=== PATIENT | male | born 1980 | race Two or more races ===

== ENCOUNTER 2024-12-22 17:34 | Emergency (ER) | payer MEDICAID, SELFPAY ==
[2024-12-22 17:46] VITALS: BP 115/79; PULSE 92; RESP 18; TEMP 37.2; O2SAT 97; BMI 33.1
--- NOTE | 2024-12-22 18:08 | XR_ITS ---
Examination: PA chest single view TECHNIQUE: Upright AP chest single view Date and time: December 22, 2024 1810 hours INDICATIONS: Coughing fever beginning 3 days ago. FINDINGS: Normal heart size No lobar pneumonia or pulmonary edema Reduced inspiratory effort IMPRESSION: Poor inspiratory effort chest x-ray
--- NOTE | 2024-12-22 18:10 | EDNOTE_ITS ---
ED Headache RME/HPI General Chief Complaint: Headache Stated Complaint: Diarrhea, ATKINSON and body aches X 2 days Time Seen by Provider: 12/22/24 17:55 Arrival date/time: 12/22/24 17:34 RME / HPI RME / HPI Narrative: 44-year-old male patient came in for evaluation regarding fever. Patient's been having fever, headache, diarrhea, body aches, bone pain, sore throat, for the last 2 days. Also complained of nonproductive cough. Patient denies any abdominal pain. Denies any ill contacts. No medications taken prior to arrival. Denies any head trauma or fall. Related Data Previous Rx's ?Medication ?Instructions ?Recorded acetaminophen 500 mg tablet 500 mg PO Q6HR PRN PAIN #3 0 tabs 01/22/15 (Tylenol Extra Strength) ibuprofen 800 mg tablet 800 mg PO Q8H PRN pain #30 t abs 12/22/24 Allergies Allergy/AdvReac Type Severity Reaction Status Date / Time No Known Allergies Allergy Unverified 12/22/24 18:10 Review of Systems Review of Systems Narrative Review of Systems: Review of system reviewed and within normal limits except mentioned in HPI ED Exam Narrative Physical exam: VITAL SIGNS: Reviewed. GENERAL APPEARANCE: Alert and interactive, follows commands, no acute distress, HEAD AND FACE: Non-traumatic. ENT: PERRL, pink conjunctivitis, eyelid no trauma, Mucous membrane moist. NECK: Supple, nontender, no nuchal rigidity. CHEST: No tenderness, no crepitus, no paradoxical movement, no retractions. LUNGS: Clear, well ventilated, symmetric, no rales, no wheezing, no ronchi, no stridor, good breath sounds bilaterally. HEART: Regular rate, regular rhythm, no murmur, no gallops. ABDOMEN: Soft, positive bowel sounds, nondistended, no guarding, nontender, no rebound, no masses, RECTAL: Deferred. GENITAL: Deferred. NEUROLOGICAL: Gross motor function intact sensory function intact, Appropriate for age. MUSCULOSKELETAL: low back nontender, full range of motion. EXTREMITIES: Nontender, full range of motion. SKIN: Color pink, dry, no rash, no lacerations, no abrasions, no contusions. LYMPHATICS: Deferred. Course Quality Measures none Orders Category Date Time Status Bedside COVID-19 Antigen Test NOW Care 12/22/24 18:08 Active XR chest 1V Stat Exams 12/22/24 18:08 Completed CBC [CBC] Stat Lab 12/22/24 18:36 Completed CMP [Comprehensive Metabolic Panel] Stat Lab 12/22/24 18:36 Completed Strep A Rapid Stat Lab 12/22/24 18:44 Completed UA, C/S IF [Urinalysis, C/S if Indicated] Stat Lab 12/22/24 18:41 Completed Acetaminophen Tab [Tylenol ES Tab] Med 12/22/24 18:08 Discontinued 1,000 mg PO X1 ONE DiphenhydrAMINE [Benadryl] Med 12/22/24 18:08 Discontinued 50 mg PO X1 ONE Metoclopramide [Reglan] Med 12/22/24 18:08 Discontinued 10 mg PO X1 ONE Vital Signs Vital signs: Vital Signs Temperature 99.0 F 12/22/24 17:46 Pulse Rate 92 12/22/24 17:46 Respiratory Rate 18 12/22/24 17:46 Blood Pressure 115/79 12/22/24 17:46 Pulse Oximetry (%) 97 12/22/24 17:46 Oxygen Delivery Method Room Air 12/22/24 17:46 Headache MDM Narrative MDM Narrative:: 44-year-old male patient came in for evaluation regarding fever. Patient's been having fever, headache, diarrhea, body aches, bone pain, sore throat, for the last 2 days. Also complained of nonproductive cough. Patient denies any abdominal pain. Denies any ill contacts. No medications taken prior to arrival. Denies any head trauma or fall. Patient workup all came back unremarkable except positive for COVID-19. Results discussed with the patient. Patient appears nontoxic and hemodynamically stable .Decision to discharge the patient. The patient/family was given an opportunity to ask questions and understood their discharge instructions. Discharge instructions specifically included follow up provider and time frame, current and/or new medications and possible side effects, indications for sooner follow up or return to the emergency department, and the expected course of current diagnosis. Patient reports feeling better as well and giving evidence of significant clinical improvement, I believe patient is now a candidate for discharge. Patient data External records reviewed:: None Clinical information provided by:: patient and family Social determinants that could affect healthcare access:: none Patient has the following chronic illnesses:: None How is presenting disease/condition affected by chronic disease/condition?: no chronic disease Evaluation data The following diagnostics were reviewed and interpreted by me:: lab results Lab and/or radiology exams considered but not ordered:: None Interpretation Summary: See results MDM none Medications / Prescriptions Medications or Prescriptions considered but not ordered:: None Medication administrations:: Medication Administration History Discontinued Medications Acetaminophen (Acetaminophen 500 Mg Tablet) 1,000 mg PO X1 ONE Stop: 12/22/24 18:09 Last Admin: 12/22/24 18:55 Dose: 1,000 mg Documented By: ED Diphenhydramine HCl (Diphenhydramine 25 Mg Capsule) 50 mg PO X1 ONE Stop: 12/22/24 18:09 Last Admin: 12/22/24 18:57 Dose: 50 mg Documented By: ED Metoclopramide HCl (Metoclopramide 5 Mg Tablet) 10 mg PO X1 ONE Stop: 12/22/24 18:09 Last Admin: 12/22/24 18:56 Dose: 10 mg Documented By: ED Reglan, González and Tylenol Consultations Consultation(s) initiated? (list below): No Diagnosis Differential diagnosis headache: migraine, tension headache and other (COVID-19) Most likely diagnosis given after review of the tests above:: COVID Admission Indicated Admission indicated?: not indicated Admission Request Was there a request for admission?: No Disposition Plan Disposition Plan: Discharge Discharge Attestation Discharge Attestation: The patient and all family members were given an opportunity to ask questions and understood the discharge instructions. Discharge instructions specifically effects, indications for sooner follow up or return to the emergency department, and the expected course of current diagnosis. Patient condition: Stable Discharge Plan Plan Patient Disposition: HOME (Self Care) Discharge Disposition comment: Stable Prescriptions/Referrals Prescriptions/Med Rec: New ibuprofen 800 mg tablet 800 mg PO Q8H PRN (Reason: pain) Qty: 30 0RF No Action acetaminophen [Tylenol Extra Strength] 500 MG tablet 500 mg PO Q6HR PRN (Reason: PAIN) Qty: 30 0RF Referrals: No Primary/Family,Physician [Primary Care Provider] - In 1 week Problem List Clinical Impression: COVID Patient/Caregiver Discharge Instructions Discharge Activity: activity as tolerated Education Materials: Symptoms of COVID-19 Infection Additional Instructions: Thank you for the opportunity for serving you today. You are stable for discharged . You are advised to: Follow-up with your PCP in 1 to 2 days Return to ED for worsening of symptoms Increase oral fluids Take medication as prescribed Print Language: Divehi Stand Alone Forms: Princess Award Info., Patient Portal Info Letter PA/DISTRIBUTION ASSOCIATE Supervising Physician TAMARA/QUINTIN Supervising Physician: MD Tara
[2024-12-22 18:49] LABS: Basophils # (Auto) 0.0 Thou/mm3 (0.0-0.2); Basophils % (Auto) 0 % (0-2.5); Eosinophils # (Auto) 0.2 Thou/mm3 (0.0-0.5); Eosinophils % (Auto) 2 % (0-10); Hematocrit 41.7 % (41.0-53.0); Hemoglobin 14.6 g/dL (13.5-16.0); Immature Granulocytes Auto 0.03 Thou/mm3 (0.00-0.00); Lymphocytes # (Auto) 1.8 Thou/mm3 (1.0-4.8); Lymphocytes % (Auto) 15 % (10-50); Mean Corpuscular HGB Conc 35.0 g/dl (31.0-37.0); Mean Corpuscular Hemoglobin 30.9 pg (25.0-35.0); Mean Corpuscular Volume 88 fL (80-100); Monocytes # (Auto) 0.9 Thou/mm3 (0.0-0.8); Monocytes % (Auto) 7 % (0-12); Neutrophils # (Auto) 9.5 Thou/mm3 (1.8-7.7); Neutrophils % (Auto) 77 % (37-80); Nucleated Red Blood Cell # 0.00 Thou/mm3 (0.00-0.00); Nucleated Red Blood Cell % 0 /100 WBC (0); Platelet Count 184 Thou/mm3 (140-440); RDW Standard Deviation 41.9 fL (35.1-43.9); Red Blood Count 4.72 Miln/mm3 (4.50-5.90); White Blood Count 12.4 Thou/mm3 (3.8-10.6)
[2024-12-22 18:55] LABS: Collection Type, Urine Clean Catch; RBC,Urine 0 /hpf (0-3); WBC,Urine 0 /hpf (0-5)
[2024-12-22] MEDS: ACETAMINOPHEN 500 MG TABLET 1000 MG PO (18:55)
[2024-12-22] MEDS: METOCLOPRAMIDE 5 MG TABLET 10 MG PO (18:56)
[2024-12-22 18:59] LABS: Anion Gap 8 (7-16); BUN/Creatinine Ratio 11 Ratio (12-20); Blood Urea Nitrogen 12 mg/dL (9-23); Carbon Dioxide 28.2 mMol/L (20.0-31.0); Chloride 106 mMol/L (98-107); Creatinine (Component) 1.1 mg/dL (0.6-1.3); Estimated Creatinine Clearance 109.1 mL/min (>60); Glucose 132 mg/dL (74-106); Potassium 3.3 mMol/L (3.4-5.1); Sodium 142 mMol/L (136-145); eGFR > 60 See Note
[2024-12-22 19:00] LABS: Alanine Aminotransferase 52 U/L (10-49); Albumin, Serum 4.2 gm/dL (3.5-5.0); Albumin/Globulin Ratio 1.4 (1.2-2.2); Alkaline Phosphatase 117 U/L (46-116); Aspartate Amino Transferase 33 U/L (0-34); Bilirubin,Total 0.7 mg/dL (0.3-1.2); Calcium 9.2 mg/dL (8.3-10.6); Calcium (Corrected) 9.2 mg/dL (8.5-10.1); Globulin 3.0 gm/dL (2.3-3.5); Osmolality,Calculated 284 (275-295); Total Protein 7.2 gm/dL (5.7-8.2)
[2024-12-22 19:04] LABS: Strep A Rapid Negative (Negative)
[2024-12-22 19:23] LABS: Bilirubin,Urine Negative (Negative); Blood,Urine Negative (Negative); Clarity,Urine Clear (Clear/Hazy); Color,Urine Yellow (Lt Yel-Yel); Culture Indicated,Urine Not Indicated; Glucose, Urine Negative (Negative); Hyaline Casts,Urine < 1 /hpf (0-1); Ketones,Urine Negative (Negative); Leukocyte Esterase,Urine Negative (Negative); Nitrite,Urine Negative (Negative); PH,Urine 7.0 (5.0-7.0); Protein,Urine 1+ (Neg - Trace); Specific Gravity,Urine 1.044 (1.001-1.035); Squamous Epithelial Cell,Urine < 1 /hpf (0-5); Urobilinogen,Urine 2.0 mg/dL (0.0-1.0)
[2024-12-22 20:28] VITALS: BP 110/69; PULSE 83; RESP 18; TEMP 36.7; O2SAT 97
== END 2024-12-22 21:19 | disposition home or self-care (01) ==
PROVIDERS: Nurse Practitioner Family; Emergency Provider Emergency Medicine
DX: U07.1 COVID-19 (principal)
CPT/HCPCS: 36415; 71045; 80053; 81001; 85025; 87651; 87811; 99284; A9270